=== PATIENT | female | born 1975 | race Caucasian/White ===

== ENCOUNTER 2016-11-03 23:38 | Emergency (ER) | payer BC ==
--- NOTE | 2016-11-04 01:28 | ED ORDER SUMMARY ---
..... Patient: JP UGARTE OrderSheet [facility] VisitID: [id number] [place] [address] 41y, F Registration Date/Time: 11/03/2016 ORDER SHEET Weight: 63.5 kg (stated) Allergies: No Known Drug Allergy GENERAL ORDERS: Cardiac Panel Stat (23:49 11/03/2016 DDavis R.N. per protocol) (Ack 23:52 CHagerty ER Prep Cook) (23:55 DDavis R.N.) UA-Culture if indicated Urgent (23:49 11/03/2016 DDavis R.N. per protocol) (Ack 23:52 CHagerty ER Prep Cook) (0:31 [facility]ty ER Prep Cook) Urine Urgent (23:49 11/03/2016 DDavis R.N. per protocol) (Ack 23:52 [facility] ER Prep Cook) (0:31 CH[facility]ty ER Prep Cook) EKG - ER Stat (23:49 11/03/2016 DDavis R.N. per protocol) (23:50 DDavis R.N.) Chest 1V Urgent (00:23 11/04/2016 Gadiel Baig) (Ack 0:30 CHagerty ER Prep Cook) (0:42 CHagerty ER Prep Cook) MEDICATION ORDERS: - (Magnesium Oxide 400 mg PO x 1 now) (01:06 11/04/2016 Gadiel Baig) (Ack 1:09 JQuivey R.N.) (1:20 JQuivey R.N.) IV FLUIDS: IV Saline Lock (23:49 11/03/2016 DDavis R.N. per protocol) (23:56 DDavis R.N.) ORDER SHEET NOTES: [Electronically signed by Marcelo Pizarro R.N. (01:47 11/04/2016)] [Electronically signed by Stephan Ledesma Dr. (02:05 11/04/2016)] [Electronically locked/signed by Marcelo Pizarro R.N. (01:47 11/04/2016)]
--- NOTE | 2016-11-04 01:28 | ED ORDER SUMMARY ---
..... Patient: JP UGARTE OrderSheet [facility] VisitID: [id number] [place] [address] 41y, F Registration Date/Time: 11/03/2016 ORDER SHEET Weight: 63.5 kg (stated) Allergies: No Known Drug Allergy GENERAL ORDERS: Cardiac Panel Stat (23:49 11/03/2016 DDavis R.N. per protocol) (Ack 23:52 CHagerty ER Category Development Manager) (23:55 DDavis R.N.) UA-Culture if indicated Urgent (23:49 11/03/2016 DDavis R.N. per protocol) (Ack 23:52 CHagerty ER Category Development Manager) (0:31 CHagerty ER Category Development Manager) Urine Urgent (23:49 11/03/2016 DDavis R.N. per protocol) (Ack 23:52 CHagerty ER Category Development Manager) (0:31 CHagerty ER Category Development Manager) EKG - ER Stat (23:49 11/03/2016 DDavis R.N. per protocol) (23:50 DDavis R.N.) Chest 1V Urgent (00:23 11/04/2016 Gadiel Baig) (Ack 0:30 CHagerty ER Category Development Manager) (0:42 CH[facility] ER Category Development Manager) MEDICATION ORDERS: - (Magnesium Oxide 400 mg PO x 1 now) (01:06 11/04/2016 Gadiel Baig) (Ack 1:09 JQuivey R.N.) (1:20 JQuivey R.N.) IV FLUIDS: IV Saline Lock (23:49 11/03/2016 DDavis R.N. per protocol) (23:56 DDavis R.N.) ORDER SHEET NOTES: [Electronically signed by Marcelo Pizarro R.N. (01:47 11/04/2016)] [Electronically signed by Stephan Ledesma Dr. (02:05 11/04/2016)] [Electronically locked/signed by Marcelo Pizarro R.N. (01:47 11/04/2016)]
--- NOTE | 2016-11-04 01:28 | ED NURSING NOTES ---
Clinical Report - Nurses [facility] [address] [place] [address] 11/03/2016 23:39 Patient: JP UGARTE TRIAGE Triage time 23:43. Acuity: LEVEL 3. Chief Complaint: CHEST PAIN. Alert. --23:47 Rudolph Pinon R.N. 23:43 11/03/16. BP: 155/88. HR: 76. RR: 12 (regular and unlabored). O2 saturation: 95% on room air. Temp: 98 F (oral). Pain level now: 0/10. Additional comments: NSR on front line leader. --23:47 Rudolph Pinon R.N. Weight: 63.5 kg stated. Height/Length: 66 inches Per Patient. BMI: 22.6. --23:44 Rudolph Pinon R.N. Medications None. --23:45 Rudolph Pinon R.N. Allergies No Known Drug Allergy. --23:45 Rudolph Pinon R.N. History Arrived by private vehicle. Historian: patient. This started today. Onset. (1999). She has had difficulty breathing. SOCIAL HX: Never smoker. Regular alcohol use; consumes beer daily and four liquor. No drug use. --23:47 Rudolph Pinon R.N. PROBLEMS: Alcoholism. Anxiety Reaction. Hand Fracture. Abrasion(s). Tetanus Status. LNMP - Last Normal Menstrual Period. --23:44 Rudolph Pinon R.N. ADDITIONAL SURGERIES: . --23:45 Rudolph Pinon R.N. Interventions ID and allergy band on patient. To treatment room. --23:47 Rudolph Pinon R.N. PHYSICAL ASSESSMENT Ambulatory to room. GENERAL / NEURO / PSYCH: Alert. Oriented X 4. Appears anxious. RESPIRATORY: Respirations not labored. Chest nontender. CVS: Normal sinus rhythm noted. Pulses within normal limits. Capillary refill less than 2 seconds. GI / : Abdomen soft and nontender. EXTREMITIES: No lower extremity edema. SKIN: Skin is warm and dry. --23:47 Rudolph Pinon R.N. NURSING PROGRESS NOTES Monitoring of patient in place. Patient gowned. Head of bed elevated. Reassurance given. Two patient identifiers checked. Call light placed in reach. Side rails up x 1. Bed placed in lowest position. Brakes of bed on. Patient ready for evaluation- chart flagged. Patient waiting for evaluation. --23:48 Rudolph Pinon R.N. ( EKG done at 2352, by SORAYA Rutledge). --23:50 Rudolph Pinon R.N. 23:56 11/03/2016 Site #1 started via IV in the right forearm with an 20g angiocath, with aseptic technique and good blood return; one attempt. Blood drawn: rainbow set. Labeled in the presence of the patient and sent to the lab. Saline lock flushed with 10 mL saline. --23:56 Rudolph Pinon R.N. 00:15 Patient to restroom to provide urine sample. --00:16 Marcelo Pizarro R.N. 00:21. Patient ID band checked for patient name and birthdate: patient confirmed. Clean catch urine collected with return of yellow-colored clear urine; sample sent to lab for urinalysis and HCG. Specimen labeled in the presence of the patient. --00:21 Marcelo Pizarro R.N. 01:18 11/04/2016 Magnesium Oxide * PO 400mg --01:20 Marcelo Pizarro R.N. 01:40. The patient is calm and resting quietly. RESPIRATORY: No respiratory distress. SKIN: Skin is warm and dry. Skin color within normal limits. --01:44 Marcelo Pizarro R.N. DISPOSITION / DISCHARGE Departure time: 01:44. Condition at departure: stable. No learning barriers present. Discharge instructions provided and reviewed with the patient. Patient verbalized understanding. Written instructions provided in Hungarian. The patient was discharged home and unaccompanied at time of discharge. She left the Emergency Department ambulatory and via private vehicle. Patient driving. FALL RISK ASSESSMENT: Fall risk assessment completed. No fall risk identified. --01:44 Marcelo Pizarro R.N. 01:35 11/04/16. BP: 110/72. HR: 71. RR: 14. O2 saturation: 100%. Pain level now: 0/10. --01:44 Marcelo Pizarro R.N. 01:41 11/04/2016 Site #1 removed upon discharge. Catheter intact. Bandaid applied. --01:46 Marcelo Pizarro R.N. Locked/Released at 11/04/2016 1:47 by Marcelo Pizarro R.N.
--- NOTE | 2016-11-04 01:28 | ED NURSING NOTES ---
Clinical Report - Nurses [facility] [address] [place] [address] 11/03/2016 23:39 Patient: JP UGARTE TRIAGE Triage time 23:43. Acuity: LEVEL 3. Chief Complaint: CHEST PAIN. Alert. --23:47 Rudolph Pinon R.N. 23:43 11/03/16. BP: 155/88. HR: 76. RR: 12 (regular and unlabored). O2 saturation: 95% on room air. Temp: 98 F (oral). Pain level now: 0/10. Additional comments: NSR on monitor and storage bin tender. --23:47 Rudolph Pinon R.N. Weight: 63.5 kg stated. Height/Length: 66 inches Per Patient. BMI: 22.6. --23:44 Rudolph Pinon R.N. Medications None. --23:45 Rudolph Pinon R.N. Allergies No Known Drug Allergy. --23:45 Rudolph Pinon R.N. History Arrived by private vehicle. Historian: patient. This started today. Onset. (1999). She has had difficulty breathing. SOCIAL HX: Never smoker. Regular alcohol use; consumes beer daily and four liquor. No drug use. --23:47 Rudolph Pinon R.N. PROBLEMS: Alcoholism. Anxiety Reaction. Hand Fracture. Abrasion(s). Tetanus Status. LNMP - Last Normal Menstrual Period. --23:44 Rudolph Pinon R.N. ADDITIONAL SURGERIES: . --23:45 Rudolph Pinon R.N. Interventions ID and allergy band on patient. To treatment room. --23:47 Rudolph Pinon R.N. PHYSICAL ASSESSMENT Ambulatory to room. GENERAL / NEURO / PSYCH: Alert. Oriented X 4. Appears anxious. RESPIRATORY: Respirations not labored. Chest nontender. CVS: Normal sinus rhythm noted. Pulses within normal limits. Capillary refill less than 2 seconds. GI / : Abdomen soft and nontender. EXTREMITIES: No lower extremity edema. SKIN: Skin is warm and dry. --23:47 Rudolph Pinon R.N. NURSING PROGRESS NOTES Monitoring of patient in place. Patient gowned. Head of bed elevated. Reassurance given. Two patient identifiers checked. Call light placed in reach. Side rails up x 1. Bed placed in lowest position. Brakes of bed on. Patient ready for evaluation- chart flagged. Patient waiting for evaluation. --23:48 Rudolph Pinon R.N. ( EKG done at 2352, by SORAYA Rutledge). --23:50 Rudolph Pinon R.N. 23:56 11/03/2016 Site #1 started via IV in the right forearm with an 20g angiocath, with aseptic technique and good blood return; one attempt. Blood drawn: rainbow set. Labeled in the presence of the patient and sent to the lab. Saline lock flushed with 10 mL saline. --23:56 Rudolph Pinon R.N. 00:15 Patient to restroom to provide urine sample. --00:16 Marcelo Pizarro R.N. 00:21. Patient ID band checked for patient name and birthdate: patient confirmed. Clean catch urine collected with return of yellow-colored clear urine; sample sent to lab for urinalysis and HCG. Specimen labeled in the presence of the patient. --00:21 Marcelo Pizarro R.N. 01:18 11/04/2016 Magnesium Oxide * PO 400mg --01:20 Marcelo Pizarro R.N. 01:40. The patient is calm and resting quietly. RESPIRATORY: No respiratory distress. SKIN: Skin is warm and dry. Skin color within normal limits. --01:44 Marcelo Pizarro R.N. DISPOSITION / DISCHARGE Departure time: 01:44. Condition at departure: stable. No learning barriers present. Discharge instructions provided and reviewed with the patient. Patient verbalized understanding. Written instructions provided in Bermudian. The patient was discharged home and unaccompanied at time of discharge. She left the Emergency Department ambulatory and via private vehicle. Patient driving. FALL RISK ASSESSMENT: Fall risk assessment completed. No fall risk identified. --01:44 Marcelo Pizarro R.N. 01:35 11/04/16. BP: 110/72. HR: 71. RR: 14. O2 saturation: 100%. Pain level now: 0/10. --01:44 Marcelo Pizarro R.N. 01:41 11/04/2016 Site #1 removed upon discharge. Catheter intact. Bandaid applied. --01:46 Marcelo Pizarro R.N. Locked/Released at 11/04/2016 1:47 by Marcelo Pizarro R.N.
--- NOTE | 2016-11-04 01:28 | ED CLINICAL REPORT ---
Clinical Report - Physicians/Mid Levels [facility] [address] [place] [address] 11/03/2016 23:39 Patient: JP UGARTE Time Seen: 23:46; initial patient contact. Arrived- By private vehicle. Historian- patient. HISTORY OF PRESENT ILLNESS Chief Complaint: CHEST PAIN. It is described as pressure and tightness and it is described as located in the central chest and left chest area and radiating to the left arm. At its maximum, severity described as mild. When seen in the E.D., severity described as mild. This started today and is still present. It was gradual in onset and has been constant. Onset during light activity. No nausea, vomiting, difficulty breathing or diaphoresis. Similar symptoms previously: None. Recent medical care: Not recently seen/assessed. REVIEW OF SYSTEMS No fever, chills, cough, pedal edema or calf pain. All systems otherwise negative, except as recorded above. PAST HISTORY Alcoholism. Anxiety Reaction. Hand Fracture. Abrasion(s). Surgeries: . Medications: None. Allergies: No Known Drug Allergy. SOCIAL HISTORY Never smoker. Alcohol use. Patient is a longstanding alcoholic. No drug use. ADDITIONAL NOTES The nursing notes have been reviewed. PHYSICAL EXAM Vital Signs: 11/03/2016 23:43 BP: 155/88. HR: 76. RR: 12. O2 saturation: 95%. Temp: 98 F. Pain level now: 0/10. Have been reviewed. Hypertensive. Heart rate normal. Bradypneic. Temperature normal. Oxygen saturation normal. Appearance: Alert. Oriented X3. No acute distress. Eyes: Eyes normal inspection. ENT: Pharynx normal. Neck: Normal inspection. No JVD. CVS: Normal heart rate and rhythm. Heart sounds normal. Respiratory: No respiratory distress. Breath sounds normal. Chest nontender. Abdomen: Soft and nontender. Bowel sounds normal. Skin: Skin warm and dry. Normal skin color. No rash. Extremities: No calf tenderness. No lower extremity edema. Neuro: Oriented X 3. LABS, X-RAYS, AND EKG EKG: EKG time: (1351). No acute process. No acute ischemia. Normal EKG. Normal sinus rhythm. Rate: 71. Normal P waves. Normal SARAVANAN. Normal QRS complex. Normal axis. Normal ST and T waves, QT and QTc. Prior EKG unavailable. The study has been interpreted contemporaneously by me. The EKG appears to be a good tracing. I agree with and confirm the computer reading of the EKG. Interpretation time: 2351. Chest X-ray: No acute disease. Normal lung markings present. Normal heart size. No infiltrate. Views: AP. Technique: good. The X-rays were independently viewed by me and interpreted contemporaneously by me. Prior films were not available for comparison. Interpretation time: 01:07. Laboratory Tests: UA-Culture if indicated: (DEBBIE: 11/04/2016 00:13) ( [facility] 11/04/2016 00:29) Final results Test Result Flag Units (Reference) URINE COLOR YELLOW URINE APPEARANCE CLEAR URINE GLUCOSE NEGATIVE (NEGATIVE) URINE BILIRUBIN NEGATIVE (NEGATIVE) URINE KETONE NEGATIVE (NEGATIVE) URINE SPECIFIC GRAVITY <= 1.005 L (1.010-1.030) URINE PH 7.0 (5.0-8.0) URINE PROTEIN NEGATIVE (NEGATIVE) URINE UROBILINOGEN 0.2 EU/dL (0.2-1.0) URINE NITRITE NEGATIVE (NEGATIVE) URINE BLOOD NEGATIVE (NEGATIVE) URINE LEUK ESTERASE NEGATIVE (NEGATIVE) URINE RBC 0-1 rbc/hpf (0-1) URINE WBC 0-1 wbc/hpf (0-1) URINE EPITHELIAL CELLS 0-1 EPI/hpf (0-5) URINE BACTERIA NONE SEEN (NONE SEEN) URINE COMMENT CULT NOT INDICATED URINE CULTURES ARE SET-UP BASED ON THE FOLLOWING CRITERIA:POSITIVE NITRITEPOSITIVE LEUKOCYTE ESTERASEGREATER THAN 10 WHITE BLOOD CELLSMODERATE (2+) OR GREATER BACTERIA Urine: (DEBBIE: 11/04/2016 00:13) ( [facility] 11/04/2016 00:29) Final results Test Result Flag Units (Reference) URINE NEGATIVE CBC w Diff: (DEBBIE: 11/03/2016 23:50) ( [facility] 11/04/2016 00:08) Final results Test Result Flag Units (Reference) WHITE BLOOD COUNT 6.9 K/uL (4.5-11.5) RED BLOOD COUNT 3.85 L M/uL (4.00-5.20) HEMOGLOBIN 13.7 gm/dL (12.0-16.0) HEMATOCRIT 40.2 % (36.0-46.0) MEAN CELL VOLUME 104 H fL (80-100) MEAN CORPUSCULAR HGB 36 H pg (26-34) MEAN CORPUSCULAR HGB CONC 34 g/dL (31-37) RED CELL DISTRIBUTION WIDTH 13.7 % (11.6-14.8) PLATELET COUNT 215 K/uL (150-400) NEUTROPHIL % 44.7 L % (50-75) LYMPH % 41.7 H % (25-40) MONO % 11.4 % (3-14) EOSINOPHIL % 1.9 % (0-4) BASOPHIL % 0.3 % (0-2) CHEM 13 PANEL: (DEBBIE: 11/03/2016 23:50) ( [facility] 11/04/2016 00:31) Final results Test Result Flag Units (Reference) GLUCOSE 188 H mg/dL (70-110) BUN 10 mg/dL (7-18) CREATININE 0.9 mg/dL (0.6-1.3) Estimated GFR >60 mL/min Estimated GFR- >60 mL/min Note: Persistent reduction over 3 months in eGFR<60 mL/min/1.73 m2 defines CKD. Patients with eGFR values>=60 mL/min/1.73 m2 may also have CKD if evidence ofpersistent proteinuria. Additional information may be foundat www.kidney.org. SODIUM 140 mmol/L (136-145) POTASSIUM 3.4 L mmol/L (3.5-5.1) CHLORIDE 102 mmol/L (98-107) CARBON DIOXIDE 23 mmol/L (21-32) CALCIUM 8.7 mg/dL (8.5-10.1) TOTAL PROTEIN 7.2 g/dL (6.4-8.2) ALBUMIN 3.8 g/dL (3.3-5.0) BILIRUBIN, TOTAL 0.3 mg/dL (0.0-1.0) ALKALINE PHOSPHATASE 109 U/L (46-116) AST (SGOT) 62 H U/L (15-37) ALT (SGPT) 61 U/L (12-78) CPK 452 H U/L (24-260) MAGNESIUM 1.5 L mg/dL (1.8-2.4) CK-MB 1.8 ng/mL (0.5-3.2) %CKMB 0.4 % (0.0-4.0) TROPONIN I <0.05 L ng/mL (0.00-1.5) TROPONIN REFERENCE RANGE:<0.1 NEGATIVE0.1-1.5 INDETERMINANT>1.5 POSITIVE . PROGRESS AND PROCEDURES Course of Care: CPK is elevated, but pt is a regular runner. Disposition: Discharged home in good and improved condition. Condition: good. CLINICAL IMPRESSION Mild hypomagnesemia. Atypical chest pain .12 lead EKG performed. INSTRUCTIONS No strenuous activity today, tomorrow. Follow a low salt diet. Your Current Medications: CONTINUE TAKING THE FOLLOWING MEDICATIONS: None*. Follow-up: Screening today revealed the patient's blood pressure to be in the hypertensive range. The patient should follow up with a primary care provider for blood pressure management. Follow-up with: [facility], [facility], , [address] [place] [address], [address] [place] [address] Follow up in about two days. Call for an appointment. (Electronically signed by Stephan Ledesma Dr. 11/04/2016 2:05)
--- NOTE | 2016-11-04 01:28 | ED CLINICAL REPORT ---
Clinical Report - Physicians/Mid Levels [facility] [address] [place] [address] 11/03/2016 23:39 Patient: JP UGARTE Time Seen: 23:46; initial patient contact. Arrived- By private vehicle. Historian- patient. HISTORY OF PRESENT ILLNESS Chief Complaint: CHEST PAIN. It is described as pressure and tightness and it is described as located in the central chest and left chest area and radiating to the left arm. At its maximum, severity described as mild. When seen in the E.D., severity described as mild. This started today and is still present. It was gradual in onset and has been constant. Onset during light activity. No nausea, vomiting, difficulty breathing or diaphoresis. Similar symptoms previously: None. Recent medical care: Not recently seen/assessed. REVIEW OF SYSTEMS No fever, chills, cough, pedal edema or calf pain. All systems otherwise negative, except as recorded above. PAST HISTORY Alcoholism. Anxiety Reaction. Hand Fracture. Abrasion(s). Surgeries: . Medications: None. Allergies: No Known Drug Allergy. SOCIAL HISTORY Never smoker. Alcohol use. Patient is a longstanding alcoholic. No drug use. ADDITIONAL NOTES The nursing notes have been reviewed. PHYSICAL EXAM Vital Signs: 11/03/2016 23:43 BP: 155/88. HR: 76. RR: 12. O2 saturation: 95%. Temp: 98 F. Pain level now: 0/10. Have been reviewed. Hypertensive. Heart rate normal. Bradypneic. Temperature normal. Oxygen saturation normal. Appearance: Alert. Oriented X3. No acute distress. Eyes: Eyes normal inspection. ENT: Pharynx normal. Neck: Normal inspection. No JVD. CVS: Normal heart rate and rhythm. Heart sounds normal. Respiratory: No respiratory distress. Breath sounds normal. Chest nontender. Abdomen: Soft and nontender. Bowel sounds normal. Skin: Skin warm and dry. Normal skin color. No rash. Extremities: No calf tenderness. No lower extremity edema. Neuro: Oriented X 3. LABS, X-RAYS, AND EKG EKG: EKG time: (3413). No acute process. No acute ischemia. Normal EKG. Normal sinus rhythm. Rate: 71. Normal P waves. Normal SARAVANAN. Normal QRS complex. Normal axis. Normal ST and T waves, QT and QTc. Prior EKG unavailable. The study has been interpreted contemporaneously by me. The EKG appears to be a good tracing. I agree with and confirm the computer reading of the EKG. Interpretation time: 2351. Chest X-ray: No acute disease. Normal lung markings present. Normal heart size. No infiltrate. Views: AP. Technique: good. The X-rays were independently viewed by me and interpreted contemporaneously by me. Prior films were not available for comparison. Interpretation time: 01:07. Laboratory Tests: UA-Culture if indicated: (DEBBIE: 11/04/2016 00:13) ( [facility] 11/04/2016 00:29) Final results Test Result Flag Units (Reference) URINE COLOR YELLOW URINE APPEARANCE CLEAR URINE GLUCOSE NEGATIVE (NEGATIVE) URINE BILIRUBIN NEGATIVE (NEGATIVE) URINE KETONE NEGATIVE (NEGATIVE) URINE SPECIFIC GRAVITY <= 1.005 L (1.010-1.030) URINE PH 7.0 (5.0-8.0) URINE PROTEIN NEGATIVE (NEGATIVE) URINE UROBILINOGEN 0.2 EU/dL (0.2-1.0) URINE NITRITE NEGATIVE (NEGATIVE) URINE BLOOD NEGATIVE (NEGATIVE) URINE LEUK ESTERASE NEGATIVE (NEGATIVE) URINE RBC 0-1 rbc/hpf (0-1) URINE WBC 0-1 wbc/hpf (0-1) URINE EPITHELIAL CELLS 0-1 EPI/hpf (0-5) URINE BACTERIA NONE SEEN (NONE SEEN) URINE COMMENT CULT NOT INDICATED URINE CULTURES ARE SET-UP BASED ON THE FOLLOWING CRITERIA:POSITIVE NITRITEPOSITIVE LEUKOCYTE ESTERASEGREATER THAN 10 WHITE BLOOD CELLSMODERATE (2+) OR GREATER BACTERIA Urine: (DEBBIE: 11/04/2016 00:13) ( [facility] 11/04/2016 00:29) Final results Test Result Flag Units (Reference) URINE NEGATIVE CBC w Diff: (DEBBIE: 11/03/2016 23:50) ( [facility] 11/04/2016 00:08) Final results Test Result Flag Units (Reference) WHITE BLOOD COUNT 6.9 K/uL (4.5-11.5) RED BLOOD COUNT 3.85 L M/uL (4.00-5.20) HEMOGLOBIN 13.7 gm/dL (12.0-16.0) HEMATOCRIT 40.2 % (36.0-46.0) MEAN CELL VOLUME 104 H fL (80-100) MEAN CORPUSCULAR HGB 36 H pg (26-34) MEAN CORPUSCULAR HGB CONC 34 g/dL (31-37) RED CELL DISTRIBUTION WIDTH 13.7 % (11.6-14.8) PLATELET COUNT 215 K/uL (150-400) NEUTROPHIL % 44.7 L % (50-75) LYMPH % 41.7 H % (25-40) MONO % 11.4 % (3-14) EOSINOPHIL % 1.9 % (0-4) BASOPHIL % 0.3 % (0-2) CHEM 13 PANEL: (DEBBIE: 11/03/2016 23:50) ( [facility] 11/04/2016 00:31) Final results Test Result Flag Units (Reference) GLUCOSE 188 H mg/dL (70-110) BUN 10 mg/dL (7-18) CREATININE 0.9 mg/dL (0.6-1.3) Estimated GFR >60 mL/min Estimated GFR- >60 mL/min Note: Persistent reduction over 3 months in eGFR<60 mL/min/1.73 m2 defines CKD. Patients with eGFR values>=60 mL/min/1.73 m2 may also have CKD if evidence ofpersistent proteinuria. Additional information may be foundat www.kidney.org. SODIUM 140 mmol/L (136-145) POTASSIUM 3.4 L mmol/L (3.5-5.1) CHLORIDE 102 mmol/L (98-107) CARBON DIOXIDE 23 mmol/L (21-32) CALCIUM 8.7 mg/dL (8.5-10.1) TOTAL PROTEIN 7.2 g/dL (6.4-8.2) ALBUMIN 3.8 g/dL (3.3-5.0) BILIRUBIN, TOTAL 0.3 mg/dL (0.0-1.0) ALKALINE PHOSPHATASE 109 U/L (46-116) AST (SGOT) 62 H U/L (15-37) ALT (SGPT) 61 U/L (12-78) CPK 452 H U/L (24-260) MAGNESIUM 1.5 L mg/dL (1.8-2.4) CK-MB 1.8 ng/mL (0.5-3.2) %CKMB 0.4 % (0.0-4.0) TROPONIN I <0.05 L ng/mL (0.00-1.5) TROPONIN REFERENCE RANGE:<0.1 NEGATIVE0.1-1.5 INDETERMINANT>1.5 POSITIVE . PROGRESS AND PROCEDURES Course of Care: CPK is elevated, but pt is a regular runner. Disposition: Discharged home in good and improved condition. Condition: good. CLINICAL IMPRESSION Mild hypomagnesemia. Atypical chest pain .12 lead EKG performed. INSTRUCTIONS No strenuous activity today, tomorrow. Follow a low salt diet. Your Current Medications: CONTINUE TAKING THE FOLLOWING MEDICATIONS: None*. Follow-up: Screening today revealed the patient's blood pressure to be in the hypertensive range. The patient should follow up with a primary care provider for blood pressure management. Follow-up with: [facility], [facility], , [address] [place] [address], [address] [place] [address] Follow up in about two days. Call for an appointment. (Electronically signed by Stephan Ledesma Dr. 11/04/2016 2:05)
--- NOTE | 2016-11-04 02:06 | ED MED RECONCILIATION SUMMARY ---
Patient: JP UGARTE Medication Reconciliation Report [facility] VisitID: [id number] [address] [place] [address] 41y, F Registration Date/Time: 11/03/2016 Weight: 63.5 kg Height/Length: 66 in. BMI: 22.6 ALLERGIES: No Known Drug Allergy The patient's Home Medications are listed below: NONE. The source(s) of the original Home Medication information: Not obtained. The following Medications were given to the patient in the Emergency Department: Magnesium Oxide PO 400mg, administered: 11/04/2016 1:18:00 AM The following Medications were prescribed to the patient: None.
--- NOTE | 2016-11-04 02:06 | ED MAR SUMMARY ---
..... Medication Administration Record [facility] [address] [place] [address] Patient: JP UGARTE Visit ID: [id number] 41y, F Weight: 63.5 kg Height/Length: 66 in BMI: 22.6 ALLERGIES: No Known Drug Allergy Given 01:18 11/04/2016 Marcelo Pizarro RJamNJam Medication Administered: Magnesium Oxide *, Dose: 400mg * PO. Medication Ordered: - (Magnesium Oxide 400 mg PO x 1 now).
--- NOTE | 2016-11-04 02:06 | ED DISCHARGE INSTRUCTIONS ---
Patient: JP UGARTE General Instructions [facility] VisitID: [id number] [place] [address] 41y, F Registration Date/Time: 11/03/2016 Mild hypomagnesemia. Atypical chest pain .12 lead EKG performed. INSTRUCTIONS No strenuous activity today, tomorrow. Follow a low salt diet. Your Current Medications: CONTINUE TAKING THE FOLLOWING MEDICATIONS: None*. Follow-up: Screening today revealed the patient's blood pressure to be in the hypertensive range. The patient should follow up with a primary care provider for blood pressure management. Follow-up with: [facility], , [address] [place] [address], [address], [place] [id number] Follow up in about two days. Call for an appointment. ADDITIONAL INFORMATION Chest Pain, Noncardiac Based on your visit today, the exact cause of your chest pain is not certain. Your condition does not seem serious and your pain does not appear to be coming from your heart. However, sometimes the signs of a serious problem take more time to appear. Therefore, please watch for the warning signs listed below. Home Care: Rest today and avoid strenuous activity. Take any prescribed medicine as directed. Follow Up with your doctor or this facility as instructed or if you do not start to feel better within 24 hours. Get Prompt Medical Attention if any of the following occur: A change in the type of pain: if it feels different, becomes more severe, lasts longer, or begins to spread into your shoulder, arm, neck, jaw or back Shortness of breath or increased pain with breathing Cough with dark colored sputum (phlegm) or blood Weakness, dizziness, or fainting Fever of 100.4F (38C) or higher, or as directed by your healthcare provider Swelling, pain or redness in one leg Low-Salt Diet (2 Grams/Day) This diet eliminates foods that are high in salt and restricts the amount of salt that you cook with. It is most often used for patients with high blood pressure, edema (fluid retention), kidney, liver, and heart disease. Table salt contains the mineral sodium. The body needs sodium to work normally. But too much sodium can make your health problems worse. Your healthcare provider is recommending a low-salt (also called low-sodium) diet for you. Your total daily allowance of salt (sodium) is 2 grams. This equals 2,000 milligrams (mg). It is less than 1 teaspoon of table salt. This means you can have only about 700 mg of sodium at each meal. When you cook, limit the salt you use. And if you can avoid using salt, even better. Do not add salt at the table. So, throw away the saltshaker! When shopping, read the package labels. Salt is often called sodium on the label. Choose foods that are Salt-Free, Low Salt, or Very Low Salt. Note that foods with Reduced Salt may notlower your salt intake enough. Beverages OK: Tea, coffee, carbonated beverages, juices AVOID: Flavored international coffees, electrolyte replacement drinks, sports beverages Bread & Cereals OK: All regular bread, rolls, cereals, cakes; low-salt crackers, matzoh crackers AVOID: Salted crackers, pretzels, popcorn; [place] toast, pancakes, muffins Fruits & Desserts OK: Ice cream, frozen yogurt, juice bars, gelatin (Jell-O), cookies and pies, sugar, honey, jelly, hard candy AVOID: Most pies, cakes and cookies prepared or processed with salt, instant pudding Meats OK: All fresh meat, fish, poultry, low-salt tuna AVOID: Smoked, pickled, brine-cured, or salted meats or fish. Thisincludes hanson, chipped beef, corned beef, hot dogs, luncheon meats, ham, kosher meats, salt pork, sausage, canned tuna, salted codfish, smokedsalmon, stratton, sardines, or anchovies. Dairy OK: Milk, chocolate milk, hot chocolate mix; eggs, Low Salt cheeses, yogurt, egg substitute AVOID: Processed cheese, cheese spreads, Roquefort, Camembert, and cottage cheese, buttermilk, instant breakfast drink Beans, Potatoes & Pasta OK: Dry beans, split peas, lentils, potatoes, rice, macaroni, noodles, spaghetti without added salt AVOID: Potato chips, tortilla chips, and similar products Soups OK: Low-salt soups and broths made with allowed foods AVOID: Bouillon cubes, soups with smoked or salted meats, regular soup and broth Vegetables OK: Most are okay; low-salt tomato and vegetable juices AVOID: Sauerkraut and other brine-soaked vegetables, pickles and other pickled vegetables, tomato juice, olives Seasoning & Spices OK: Most seasonings are okay. Good substitutes for salt include: fresh herb blends, Tabasco, lemon, garlic, fair, vinegar, dry mustard, parsley, cilantro, horseradish, tomato paste, regular margarine, mayonnaise, butter, cream cheese, vegetable oil, cream, low-salt salad dressing and gravy AVOID: Regular ketchup, relishes, pickles, soy sauce, teriyaki sauce, Worcestershire sauce, BBQ sauce, tartar sauce, meat tenderizer, chili sauce, regular gravy, regular salad dressing You have been given the following additional information: Chest Pain, Noncardiac Diet, Low Salt (2Gm) No strenuous activity today, tomorrow. (Electronically signed by Stephan Ledesma Dr. 11/04/2016 2:05)
--- NOTE | 2016-11-04 02:06 | ED MED RECONCILIATION SUMMARY ---
Patient: JP UGARTE Medication Reconciliation Report [facility] VisitID: [id number] [address] [place] [address] 41y, F Registration Date/Time: 11/03/2016 Weight: 63.5 kg Height/Length: 66 in. BMI: 22.6 ALLERGIES: No Known Drug Allergy The patient's Home Medications are listed below: NONE. The source(s) of the original Home Medication information: Not obtained. The following Medications were given to the patient in the Emergency Department: Magnesium Oxide PO 400mg, administered: 11/04/2016 1:18:00 AM The following Medications were prescribed to the patient: None.
--- NOTE | 2016-11-04 02:06 | ED DISCHARGE INSTRUCTIONS ---
Patient: JP UGARTE General Instructions [facility] VisitID: [id number] [place] [address] 41y, F Registration Date/Time: 11/03/2016 Mild hypomagnesemia. Atypical chest pain .12 lead EKG performed. INSTRUCTIONS No strenuous activity today, tomorrow. Follow a low salt diet. Your Current Medications: CONTINUE TAKING THE FOLLOWING MEDICATIONS: None*. Follow-up: Screening today revealed the patient's blood pressure to be in the hypertensive range. The patient should follow up with a primary care provider for blood pressure management. Follow-up with: [facility], , [address] [place] [address], [address], [place] [id number] Follow up in about two days. Call for an appointment. ADDITIONAL INFORMATION Chest Pain, Noncardiac Based on your visit today, the exact cause of your chest pain is not certain. Your condition does not seem serious and your pain does not appear to be coming from your heart. However, sometimes the signs of a serious problem take more time to appear. Therefore, please watch for the warning signs listed below. Home Care: Rest today and avoid strenuous activity. Take any prescribed medicine as directed. Follow Up with your doctor or this facility as instructed or if you do not start to feel better within 24 hours. Get Prompt Medical Attention if any of the following occur: A change in the type of pain: if it feels different, becomes more severe, lasts longer, or begins to spread into your shoulder, arm, neck, jaw or back Shortness of breath or increased pain with breathing Cough with dark colored sputum (phlegm) or blood Weakness, dizziness, or fainting Fever of 100.4F (38C) or higher, or as directed by your healthcare provider Swelling, pain or redness in one leg Low-Salt Diet (2 Grams/Day) This diet eliminates foods that are high in salt and restricts the amount of salt that you cook with. It is most often used for patients with high blood pressure, edema (fluid retention), kidney, liver, and heart disease. Table salt contains the mineral sodium. The body needs sodium to work normally. But too much sodium can make your health problems worse. Your healthcare provider is recommending a low-salt (also called low-sodium) diet for you. Your total daily allowance of salt (sodium) is 2 grams. This equals 2,000 milligrams (mg). It is less than 1 teaspoon of table salt. This means you can have only about 700 mg of sodium at each meal. When you cook, limit the salt you use. And if you can avoid using salt, even better. Do not add salt at the table. So, throw away the saltshaker! When shopping, read the package labels. Salt is often called sodium on the label. Choose foods that are Salt-Free, Low Salt, or Very Low Salt. Note that foods with Reduced Salt may notlower your salt intake enough. Beverages OK: Tea, coffee, carbonated beverages, juices AVOID: Flavored international coffees, electrolyte replacement drinks, sports beverages Bread & Cereals OK: All regular bread, rolls, cereals, cakes; low-salt crackers, matzoh crackers AVOID: Salted crackers, pretzels, popcorn; [place] toast, pancakes, muffins Fruits & Desserts OK: Ice cream, frozen yogurt, juice bars, gelatin (Jell-O), cookies and pies, sugar, honey, jelly, hard candy AVOID: Most pies, cakes and cookies prepared or processed with salt, instant pudding Meats OK: All fresh meat, fish, poultry, low-salt tuna AVOID: Smoked, pickled, brine-cured, or salted meats or fish. Thisincludes hanson, chipped beef, corned beef, hot dogs, luncheon meats, ham, kosher meats, salt pork, sausage, canned tuna, salted codfish, smokedsalmon, stratton, sardines, or anchovies. Dairy OK: Milk, chocolate milk, hot chocolate mix; eggs, Low Salt cheeses, yogurt, egg substitute AVOID: Processed cheese, cheese spreads, Roquefort, Camembert, and cottage cheese, buttermilk, instant breakfast drink Beans, Potatoes & Pasta OK: Dry beans, split peas, lentils, potatoes, rice, macaroni, noodles, spaghetti without added salt AVOID: Potato chips, tortilla chips, and similar products Soups OK: Low-salt soups and broths made with allowed foods AVOID: Bouillon cubes, soups with smoked or salted meats, regular soup and broth Vegetables OK: Most are okay; low-salt tomato and vegetable juices AVOID: Sauerkraut and other brine-soaked vegetables, pickles and other pickled vegetables, tomato juice, olives Seasoning & Spices OK: Most seasonings are okay. Good substitutes for salt include: fresh herb blends, Tabasco, lemon, garlic, fair, vinegar, dry mustard, parsley, cilantro, horseradish, tomato paste, regular margarine, mayonnaise, butter, cream cheese, vegetable oil, cream, low-salt salad dressing and gravy AVOID: Regular ketchup, relishes, pickles, soy sauce, teriyaki sauce, Worcestershire sauce, BBQ sauce, tartar sauce, meat tenderizer, chili sauce, regular gravy, regular salad dressing You have been given the following additional information: Chest Pain, Noncardiac Diet, Low Salt (2Gm) No strenuous activity today, tomorrow. (Electronically signed by Stephan Ledesma Dr. 11/04/2016 2:05)
--- NOTE | 2016-11-04 02:06 | ED MAR SUMMARY ---
..... Medication Administration Record [facility] [address] [place] [address] Patient: JP UGARTE Visit ID: [id number] 41y, F Weight: 63.5 kg Height/Length: 66 in BMI: 22.6 ALLERGIES: No Known Drug Allergy Given 01:18 11/04/2016 Marcelo Pizarro RJamNJam Medication Administered: Magnesium Oxide *, Dose: 400mg * PO. Medication Ordered: - (Magnesium Oxide 400 mg PO x 1 now).
--- NOTE | 2016-11-04 07:27 | DIAGNOSTIC IMAGING REPORT ---
PROCEDURE: XR CHEST 1 VIEW INDICATION: Right-sided chest pain TECHNIQUE: Single view chest. [id number] hours COMPARISON: None FINDINGS: The cardiopulmonary contour and central vasculature are within normal limits. The lungs are clear without focal consolidation, pleural effusion or pneumothorax. The osseous structures are intact. IMPRESSION: 1. No evidence of acute cardiopulmonary disease.
== END 2016-11-04 01:44 | disposition home or self-care (01) ==
LOC: ED SRH 23:38
DX: R07.89 Other chest pain (principal); E83.42 Hypomagnesemia
CPT/HCPCS: 90004; 90100; 90616; 90617; 92610; 92720; 93070; 95059